=== PATIENT | male | born 1985 | race Caucasian/White ===

== ENCOUNTER → 2017-08-09 | Outpatient (CLI) | payer BC | END | disposition home or self-care (01) | LOC: GMAM 10:21 | PROVIDERS: ATTEND Family Medicine | DX: J30.9 Allergic rhinitis, unspecified (principal) ==

== ENCOUNTER → 2017-08-15 | Outpatient (CLI) | payer BC | LOC: EDSTATUS 09:01 → GMAM 10:20 | PROVIDERS: ATTEND Family Medicine | DX: R21 Rash and other nonspecific skin eruption (principal) ==

== ENCOUNTER → 2017-12-20 | Outpatient (CLI) | payer BC | LOC: GMAJS 10:25 | PROVIDERS: ATTEND Physician Assistant | DX: I10 Essential (primary) hypertension (principal) ==

== ENCOUNTER 2018-03-15 00:03 | Emergency (ER) | payer BC ==
[2018-03-15] MEDS ORDERED: diphenhydrAMINE HCL 50 MG/ML VIAL IM ONE (00:26)
[2018-03-15] MEDS ORDERED: DEXAMETHASONE INJ 10 MG/ML VIAL IM ONE (00:26)
--- NOTE | 2018-03-15 00:29 | ED.PDOC ---
History of Present Illness - General Chief Complaint: Allergic Reaction Stated Complaint: allergic reaction, rash Time Seen by Provider: 03/15/18 00:21 Source: patient, RN notes reviewed, Vital Signs reviewed, family Exam Limitations: no limitations Additional Information: pt reports recurrent allergen exposure over the last few weeks due to work. 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 Pt takes daily dominic for allergies, complains of skin rash but also nasal congestion. no fever, no other exposures - History of Present Illness Timing/Duration: this morning Cough Quality/Degree: no cough Possible Cause: allergen exposure Improving Factors: nothing Worsening Factors: nothing Associated Symptoms: nasal congestion, other - has tried benadry and vistaril at home for itching Allergies/Adverse Reactions: Allergies NO KNOWN ALLERGY Allergy (Verified 03/15/18 00:25) Home Medications: Ambulatory Orders Montelukast [Singulair] 10 mg PO BEDTIME 30 Days #30 tab 03/15/18 Prednisone [Deltasone] 40 mg PO DAILY 5 Days #10 tab 03/15/18 Triamcinolone 0.1% Oint [Kenalog 0.1% Ointment] 1 applic TOP BID PRN #1 tube 08/21 Review of Systems - Review of Systems Constitutional: States: no symptoms reported EENTM: States: nose congestion Respiratory: States: no symptoms reported Cardiology: States: no symptoms reported Gastrointestinal/Abdominal: States: no symptoms reported Genitourinary: States: no symptoms reported Skin: States: rash Neurological: States: no symptoms reported Endocrine: States: no symptoms reported Hematologic/Lymphatic: States: no symptoms reported Past Medical History (General) - Patient Medical History Hx Seizures: No Hx Dementia: No Hx Asthma: No Hx Diabetes: No Surgical History: no surgical history - Vaccination History Hx Tetanus, Diphtheria Vaccination: No Hx Influenza Vaccination: No Hx Pneumococcal Vaccination: No - Social History Hx Tobacco Use: No Hx Alcohol Use: Yes - occ Family Medical History - Family History Father Family History: Unknown Physical Exam - Physical Exam General Appearance: Alert, Well Groomed, Well Hydrated, Well Nourished Eye Exam: bilateral normal ENT Exam: nasal congestion, nasal drainage Neck: non-tender, full range of motion, supple Respiratory: chest non-tender, lungs clear, normal breath sounds, no respiratory distress, no accessory muscle use Cardiovascular/Chest: normal peripheral pulses, regular rate, rhythm, no edema, no gallop Gastrointestinal/Abdominal: non tender, soft Extremity: normal range of motion, non-tender Neurologic: no motor/sensory deficits, alert Skin Exam: rash - diffuse macular/ papular rash to the face, arms, torso. blanching with no skin sluffing, no rash in mouth. appear urticarial Progress - Progress Progress: 03/15/18 00:35 discussed with patient and family treatment options. I was concerned with patients reexposure to his allergen as well as the likely future exposures he will have. Discussed the need for close pcp f/u for further referral and medication adjustments. Will given IM dose of steroid and antihistamine in ed. Also feel that a mast cell stabilizer will be beneficial for him in an effort to avoid repeat steroid use. Pt currently has no signs of airway compromise and will return if there is an acute change in condition. Departure - Departure Clinical Impression: Urticaria, Hay fever Time of Disposition: 00:27 Disposition: Discharge to Home or Self Care Condition: Excellent Departure Forms: ED Discharge - Pt. Copy, Patient Portal Self Enrollment Instructions: Hives Diet: resume usual diet Activity: increase activity as tolerated Referrals: Toni Day MD [Primary Care Provider] - 1 Week Prescriptions: Montelukast [Singulair] 10 mg PO BEDTIME 30 Days #30 tab Prednisone [Deltasone] 40 mg PO DAILY 5 Days #10 tab Triamcinolone 0.1% Oint [Kenalog 0.1% Ointment] 1 applic TOP BID PRN #1 tube PRN Reason: Rash Home Medications: Ambulatory Orders Montelukast [Singulair] 10 mg PO BEDTIME 30 Days #30 tab 03/15/18 Prednisone [Deltasone] 40 mg PO DAILY 5 Days #10 tab 03/15/18 Triamcinolone 0.1% Oint [Kenalog 0.1% Ointment] 1 applic TOP BID PRN #1 tube 08/21
[2018-03-15 00:55] VITALS: TEMP 97.9
[2018-03-15 00:57] VITALS: BP 158/98; O2SAT 98
== END 2018-03-15 00:57 | disposition home or self-care (01) ==
LOC: ER 00:03
DX: J30.1 Allergic rhinitis due to pollen (principal); L50.0 Allergic urticaria
CPT/HCPCS: J1100; J1200

== ENCOUNTER → 2020-06-30 | Outpatient (CLI) | payer BC, OTHER ==
--- NOTE | 2020-07-01 07:24 | US ---
EXAM DESCRIPTION: Soft Tissue,Head/Neck: ULTRASOUND. CLINICAL HISTORY: 34 years Male LOCALIZED SWELLING, MASS AND LUMP LEFT MANDIBULAR REGION COMPARISON: None Available. TECHNIQUE: Transcutaneous scanning: Mcdonnell-scale and Doppler modes. FINDINGS: Scanning at site of palpable mass abutting the left mandible. 8.6 x 3.7 x 3.1 mm circumscribed mass which is hypoechoic with parallel orientation and posterior acoustic enhancement. Minimal vascularity consistent with a lymph node. No cyst or fluid collection. No large calcifications. IMPRESSION: Probable mass abutting the left mandible corresponds to a 8.6 mm lymph node. Electronically signed by: Mendel Aleman MD 07/01/2020 7:23 AM CDT
== END ==
LOC: US 10:11
PROVIDERS: ATTEND Family Medicine
DX: R22.0 Localized swelling, mass and lump, head (principal)